=== PATIENT | female | born 1980 | race African-American/Black ===

== ENCOUNTER 2021-10-02 09:31 | Emergency (ER) | payer SELFPAY ==
[2021-10-02 11:45] LABS: Absolute Lymphocytes (CBC) 0.4 K/uL (0.7-4.9); Hematocrit 34.8 % (36.0-45.0); MCV 87.9 fL (80-100); MPV 6.9 fL (7.6-11.3); RBC Red Blood Cell Count 3.96 M/uL (3.86-4.86)
[2021-10-02 12:01] LABS: Potassium 3.5 mmol/L (3.5-5.1)
[2021-10-02 12:42] LABS: Blood Morphology Comment NOT SEEN (NOT SEEN); Platelet Estimate DECR
[2021-10-02] MEDS ORDERED: NA CHLORIDE 0.9% 1,000 ML ONE (12:45)
--- NOTE | 2021-10-02 14:03 | EDPHYS ---
Physician Documentation [facility] Name: Fanta Dixon Age: 41 yrs Sex: Female : 1980 Arrival Date: 10/02/2021 Time: 09:32 Bed 12 Private MD: ED Physician Rao Rainey HPI: 10/02 13:58 This 41 yrs old Black Female presents to ER via Ambulatory with complaints of Pain All jmm Over, dehydration. 13:58 The patient or guardian reports ear ache. Onset: The symptoms/episode began/occurred jmm gradually. Associated signs and symptoms: Pertinent negatives: fever. This is a 41 year od female with no chronic medical conditions that presents to the ED with complaints of fatigue, weakness, headache, body aches Patient attributes [place] Denies vomiting. . Historical: - Allergies: 11:07 No Known Allergies; jl7 - Home Meds: 11:07 None [Active]; jl7 - PMHx: 11:07 None; jl7 - PSHx: 11:07 section; jl7 - Immunization history:: Client reports receiving the 2nd dose of the Covid vaccine. - Social history:: Smoking status: Patient reports the use of cigarette tobacco products, smokes one-half pack cigarettes per day. ROS: 13:58 Constitutional: Positive for body aches, chills. jmm 13:58 Respiratory: Negative for cough, shortness of breath. 13:58 Neuro: Positive for headache. 13:58 All other systems are negative. Exam: 13:58 Constitutional: This is a well developed, well nourished patient who is awake, alert, jmm and in no acute distress. Head/Face: atraumatic. Eyes: EOMI, no conjunctival erythema appreciated ENT: Moist Mucus Membranes Neck: Trachea midline, Supple Chest/axilla: Normal chest wall appearance and motion. Cardiovascular: Regular rate and rhythm. No edema appreciated Respiratory: Normal respirations, no respiratory distress appreciated Abdomen/GI: Non distended Back: Normal ROM Skin: General appearance color normal MS/ Extremity: Moves all extremities, no obvious deformities appreciated, no edema noted to the lower extremities Neuro: Awake and alert Psych: Behavior is normal, Mood is normal, Patient is cooperative and pleasant Vital Signs: 11:06 BP 110 / 73; Pulse 105; Resp 17; Temp 99.8; Pulse Ox 100% ; Weight 99.79 kg; Height 5 7 ft. 5 in. (165.10 cm); Pain 8/10; 12:49 BP 120 / 72; Pulse 101; Resp 15; Pulse Ox 100% ; jl7 11:06 Body Mass Index 36.61 (99.79 kg, 165.10 cm) 7 MDM: 10:57 Patient medically screened. [facility] 14:01 Data reviewed: vital signs, nurses notes. Counseling: I had a detailed discussion with [facility] the patient and/or guardian regarding: the historical points, exam findings, and any diagnostic results supporting the discharge/admit diagnosis, lab results, the need for outpatient follow up, to return to the emergency department if symptoms worsen or persist or if there are any questions or concerns that arise at home. ED course: Patient is alert and non toxic in apperance in the ED. No signs of resp distress. patient advised to follow up with pcp and otherwise given strict return precautions. Patient understood and agrees with the plan of care. . 10/02 10:58 Order name: BMP; Complete Time: 12:23 [facility] 10/02 10:58 Order name: CPK; Complete Time: 12:23 [facility] 10/02 10:58 Order name: SARS-COV-2 RT PCR (Document "Date of Onset" if Symptomatic); Complete Time: [facility] 13:12 10/02 11:27 Order name: CBC with Diff; Complete Time: 12:53 [facility] 10/02 11:57 Order name: Manual Differential; Complete Time: 12:53 [facility] 10/02 10:58 Order name: Saline Lock; Complete Time: 11:43 [facility] Administered Medications: 12:48 Drug: NS 0.9% 1000 ml Route: IV; Rate: 1 bolus; Site: right antecubital; [facility] 13:44 Follow up: IV Status: Completed infusion bm7 Disposition: 22:42 Co-signature as Attending Physician, Rao DOBBS was immediately available on-site ms3 in the Emergency Department for consultation in the care of the patient.. Disposition Summary: 10/02/21 14:02 Discharge Ordered Location: Home [facility] Condition: Stable [facility] Diagnosis - Coronavirus infection, unspecified [facility] Followup: [facility] - With: Private Physician - When: 2 - 3 days - Reason: Recheck today's complaints, Continuance of care, Re-evaluation by your physician Discharge Instructions: - Discharge Summary Sheet [facility] Forms: - Medication Reconciliation Form [facility] - Thank You Letter lucien - Antibiotic Education [facility] - Prescription Opioid Use [facility] Prescriptions: - Paxlovid (EUA) 150 mg x 2- 100 mg Oral tablet - take 1 application by ORAL route 2 times per day for 5 days No renal [facility] impairment; 1 packet; Refills: 0, Product Selection Permitted Signatures: Dispatcher [employer] EDMS Cristobal Angel PA PA jmm Leal, Jahala, RN RN jl7 Rao Rainey DO DO ms3 Tiesha Jeffrey RN bm7 Corrections: (The following items were deleted from the chart) 11:08 11:07 Home Meds: Unable to obtain; jl7 jl7 11:08 11:07 PSHx: None; jl7 jl7
--- NOTE | 2021-10-02 14:03 | ER ---
Nurse's Notes [facility] Name: Fanta Dixon Age: 41 yrs Sex: Female : 1980 Arrival Date: 10/02/2021 Time: 09:32 Bed 12 Private MD: Diagnosis: Coronavirus infection, unspecified Presentation: 10/02 11:06 Chief complaint: Patient states: [place], Body aches x 2 days. Coronavirus screen: Vaccine jl7 status: Patient reports receiving the 2nd dose of the covid vaccine. chills, fatigue, headache, Client presents with at least one sign or symptom that may indicate coronavirus-19. Standard/surgical mask placed on the client. Ebola Screen: No symptoms or risks identified at this time. Initial Sepsis Screen: Does the patient meet any 2 criteria? No. Patient's initial sepsis screen is negative. Does the patient have a suspected source of infection? No. Patient's initial sepsis screen is negative. Risk Assessment: Do you want to hurt yourself or someone else? Patient reports no desire to harm self or others. Onset of symptoms was October 01, 2021. 11:06 Method Of Arrival: Ambulatory jl7 11:06 Acuity: MARC 3 jl7 Historical: - Allergies: 11:07 No Known Allergies; jl7 - Home Meds: 11:07 None [Active]; jl7 - PMHx: 11:07 None; jl7 - PSHx: 11:07 section; jl7 - Immunization history:: Client reports receiving the 2nd dose of the Covid vaccine. - Social history:: Smoking status: Patient reports the use of cigarette tobacco products, smokes one-half pack cigarettes per day. Screenin:49 Abuse screen: Denies threats or abuse. Denies injuries from another. Nutritional jl7 screening: No deficits noted. Tuberculosis screening: No symptoms or risk factors identified. Fall Risk IV access (20 points). Total Santacruz Fall Scale indicates No Risk (0-24 pts). Assessment: 12:49 Reassessment: Patient appears in no apparent distress at this time. No changes from jl7 previously documented assessment. Patient and/or family updated on plan of care and expected duration. Pain level reassessed. Patient is alert, oriented x 3, equal unlabored respirations, skin warm/dry/pink. 13:45 Reassessment: Patient appears in no apparent distress at this time. No changes from jl7 previously documented assessment. Patient and/or family updated on plan of care and expected duration. Pain level reassessed. Patient is alert, oriented x 3, equal unlabored respirations, skin warm/dry/pink. Vital Signs: 11:06 BP 110 / 73; Pulse 105; Resp 17; Temp 99.8; Pulse Ox 100% ; Weight 99.79 kg; Height 5 jl7 ft. 5 in. (165.10 cm); Pain 8/10; 12:49 BP 120 / 72; Pulse 101; Resp 15; Pulse Ox 100% ; jl7 11:06 Body Mass Index 36.61 (99.79 kg, 165.10 cm) jl7 ED Course: 09:32 Patient arrived in ED. as 09:35 Cristobal Angel PA is PHCP. [facility] 09:35 Rao Rainey DO is Attending Physician. [facility] 11:07 Triage completed. jl7 11:07 Arm band placed on right wrist. Patient placed in waiting room, Patient notified of jl7 wait time. 11:08 COVID swab sent to lab. jl7 11:42 Inserted saline lock: 20 gauge in right antecubital area, using aseptic technique. Blood collected. 11:43 CBC with Diff Sent. zm 11:43 CPK Sent. zm 11:43 BMP Sent. zm 11:43 SARS-COV-2 RT PCR (Document "Date of Onset" if Symptomatic) Sent. zm 12:29 Amrit Hdez, RN is Primary Nurse. jl7 12:49 Patient has correct armband on for positive identification. Pulse ox on. NIBP on. Warm jl7 blanket given. 14:19 No provider procedures requiring assistance completed. IV discontinued, intact, jl7 bleeding controlled, No redness/swelling at site. Pressure dressing applied. Administered Medications: 12:48 Drug: NS 0.9% 1000 ml Route: IV; Rate: 1 bolus; Site: right antecubital; jl7 13:44 Follow up: IV Status: Completed infusion bm7 Medication: 12:49 VIS not applicable for this client. jl7 Outcome: 14:02 Discharge ordered by . deidra 14:19 Discharged to home ambulatory. jl7 14:19 Condition: stable 14:19 Discharge instructions given to patient, Instructed on discharge instructions, follow up and referral plans. medication usage, Demonstrated understanding of instructions, follow-up care, medications, Prescriptions given X 1. 14:20 Patient left the ED. jl7 Signatures: Cristobal Angel PA PA jmm Martinez, Amelia as Leal, Jahala, RN RN adrienne7 Tiesha Jeffrey, RONNY RN Betzaida Ferguson Corrections: (The following items were deleted from the chart) 11: 11:07 Home Meds: Unable to obtain; jl7 jl7 11:08 11:07 PSHx: None; Ronnie jl7
[2021-10-02 14:32] VITALS: TEMP 99.8; O2SAT 100
[2021-10-02 14:34] VITALS: BP 120/72
== END 2021-10-02 14:20 | disposition home or self-care (01) ==
LOC: ER 09:31
DX: U07.1 COVID-19 (principal); E86.0 Dehydration; H92.03 Otalgia, bilateral; R53.83 Other fatigue; R51.9 Headache, unspecified
CPT/HCPCS: 36415; 80048; 82550; 85025; J7030; U0003